=== PATIENT | male | born 1980 | race Native Hawaiian/Other Pacific Islander ===

== ENCOUNTER 2019-06-26 11:00 | Emergency (ER) | payer OTHER ==
[~2019-06-26] VITALS: Ht 180.3 cm; Wt 79.4 kg
[2019-06-26 12:30] VITALS: BP 138/83; TEMP 97
== END 2019-06-26 12:30 | disposition short-term general hospital (02) ==
LOC: ED 11:03
DX: S68.623A Partial traumatic transphalangeal amputation of left middle finger, initial encounter (principal); S61.211A Laceration without foreign body of left index finger without damage to nail, initial encounter; S66.321A Laceration of extensor muscle, fascia and tendon of left index finger at wrist and hand level, initial encounter; W29.3XXA Contact with powered garden and outdoor hand tools and machinery, initial encounter
CPT/HCPCS: 96360; 96365; 96375; 99284; 99285; J0696; J1885; J2175; J7040

== ENCOUNTER 2021-06-21 09:16 | Outpatient (CLI) | payer OTHER | END 2021-06-21 19:10 | disposition home or self-care (01) | LOC: RAD 09:16 | PROVIDERS: ATTEND Nurse Practitioner Primary Care | DX: M25.511 Pain in right shoulder (principal) ==